=== PATIENT | male | born 1990 | race Caucasian/White ===

== ENCOUNTER 2017-03-20 09:26 | Emergency (ER) | payer MEDICAID ==
[~2017-03-20] VITALS: Ht 175.3 cm; Wt 62.4 kg
[~2017-03-20 09:26] MED LIST: ALBU8.5H8 IH; CLON-528 PO; IBUP-1986 PO; MECL-111 PO; OLAN2.5T3 PO; ONDA4TAB12 PO; ZIPR20CA2 PO
[2017-03-20 10:36] LABS: BASOPHILS % (AUTO) 0.5 % (0-1); EOSINOPHILS # (AUTO) 0.1 X10'3 (0-0.9); EOSINOPHILS % (AUTO) 1.6 % (0-6); HEMATOCRIT 48.4 % (42.0-52.0); HEMOGLOBIN 16.4 g/dl (14.0-17.9); MEAN CORPUSCULAR HEMOGLOBIN 31.6 PG (27.0-31.0); MEAN CORPUSCULAR HGB CONC 33.8 % (33.0-36.5); MEAN CORPUSCULAR VOLUME 93.5 FL (78-98); MEAN PLATELET VOLUME 7.8 FL (7.4-10.4); MONOCYTES # (AUTO) 0.4 X10'3 (0-0.9); MONOCYTES % (AUTO) 8.5 % (2-12); NEUTROPHILS # (AUTO) 3.4 X10'3 (1.8-7.7); NEUTROPHILS % (AUTO) 68.4 % (42-75); PLATELET COUNT 275 X10'3 (140-440); RED BLOOD COUNT 5.17 X10'6 (4.70-6.10); RED CELL DISTRIBUTION WIDTH 12.5 % (11.5-14.5)
[2017-03-20 10:47] LABS: INR 1.1 INR; PARTIAL THROMBOPLASTIN TIME 26 SECONDS (22-32); PROTHROMBIN TIME 11.1 SECONDS (9.0-12.0)
[2017-03-20 10:52] LABS: ALANINE AMINOTRANSFERASE 36 U/L (12-78); ALBUMIN/GLOBULIN RATIO 1.4 (1.1-1.5); ALKALINE PHOSPHATASE 56 IU/L (46-116); ANION GAP 9 (8-16); ASPARTATE AMINO TRANSFERASE 29 U/L (10-37); BILIRUBIN,TOTAL 0.8 MG/DL (0.1-1.0); BLOOD UREA NITROGEN 13 MG/DL (7-18); BUN/CREATININE RATIO 16.3 (5.4-32.0); CALCIUM 9.7 MG/DL (8.5-10.1); CHLORIDE 101 MMOL/L (99-107); ETHANOL < 0.010 GM/DL (0.0-0.010); GLUCOSE 107 MG/DL (70-104); POTASSIUM 4.3 MMOL/L (3.5-5.1); SODIUM 141 MMOL/L (135-145); TOTAL CARBON DIOXIDE 30.7 MMOL/L (24-32); TOTAL PROTEIN 8.7 G/DL (6.4-8.2); eGFR > 90 ML/MIN
[2017-03-20 12:12] LABS: CLARITY,URINE SLIGHTLY CLOUDY (Clear); COLOR,URINE DARK YELLOW (Yellow); GLUCOSE, URINE NEGATIVE (Neg); KETONES,URINE 40 mg/dl (Neg); LEUKOCYTE ESTERASE ,URINE MODERATE (Neg); NITRITES, URINE NEGATIVE (Neg); OCCULT BLOOD,URINE NEGATIVE (Neg); PH,URINE 6.5 (4.8-8.0); PROTEIN,URINE NEGATIVE (Neg); UA COLLECTION TYPE VOIDED
[2017-03-20 12:23] LABS: BACTERIA,URINE 1+ /HPF (Neg); MUCUS STRANDS MANY /LPF (Neg); RBC,URINE NONE SEEN /HPF (0-2); SQUAMOUS EPITHELIAL CELL,UR MANY /LPF (FEW)
[2017-03-20 12:24] LABS: URINE AMPHETAMINE SCREEN NEGATIVE (Neg); URINE BARBITUATE SCREEN NEGATIVE (Neg); URINE BENZODIAZEPINES SCREEN NEGATIVE (Neg); URINE CANNABINOID SCREEN POSITIVE (Neg); URINE COCAINE SCREEN NEGATIVE (Neg); URINE METHADONE SCREEN NEGATIVE (Neg); URINE OPIATE SCREEN NEGATIVE (Neg); URINE PHENCYCLIDINE SCREEN NEGATIVE (Neg)
[2017-03-20 13:14] VITALS: BP 128/67
== END 2017-03-20 13:33 | disposition home or self-care (01) ==
LOC: ER 09:27
DX: S09.90XA Unspecified injury of head, initial encounter (principal); R55 Syncope and collapse; F41.9 Anxiety disorder, unspecified; F32.9 Major depressive disorder, single episode, unspecified; F20.9 Schizophrenia, unspecified; F12.10 Cannabis abuse, uncomplicated; Z88.8 Allergy status to other drugs, medicaments and biological substances; W22.8XXA Striking against or struck by other objects, initial encounter; Y93.89 Activity, other specified; Y92.002 Bathroom of unspecified non-institutional (private) residence as the place of occurrence of the external cause; Y99.8 Other external cause status
CPT/HCPCS: 36415; 70450; 80053; 80305; 80320; 81001; 85025; 85610; 85730; 93005; 99285

== ENCOUNTER 2017-04-03 00:41 | Inpatient (IN) | payer MEDICAID ==
[~2017-04-03] VITALS: Ht 175.3 cm; Wt 66.9 kg
[2017-04-03] MEDS ORDERED: ketorolac trometh. 30mg/ml inj. IV ONE (02:00)
[2017-04-03 02:37] LABS: BASOPHILS % (AUTO) 0.1 % (0-1); EOSINOPHILS # (AUTO) 0.3 X10'3 (0-0.9); EOSINOPHILS % (AUTO) 2.3 % (0-6); HEMATOCRIT 37.4 % (42.0-52.0); HEMOGLOBIN 12.8 g/dl (14.0-17.9); LYMPHOCYTES # (AUTO) 1.3 X10'3 (1.1-4.8); LYMPHOCYTES % (AUTO) 11.8 % (21-51); MEAN CORPUSCULAR HEMOGLOBIN 32.2 PG (27.0-31.0); MEAN CORPUSCULAR HGB CONC 34.3 % (33.0-36.5); MEAN CORPUSCULAR VOLUME 93.9 FL (78-98); MEAN PLATELET VOLUME 7.7 FL (7.4-10.4); MONOCYTES # (AUTO) 0.7 X10'3 (0-0.9); MONOCYTES % (AUTO) 6.5 % (2-12); NEUTROPHILS # (AUTO) 8.9 X10'3 (1.8-7.7); NEUTROPHILS % (AUTO) 79.3 % (42-75); PLATELET COUNT 223 X10'3 (140-440); RED BLOOD COUNT 3.98 X10'6 (4.70-6.10); RED CELL DISTRIBUTION WIDTH 12.4 % (11.5-14.5); WHITE BLOOD COUNT 11.2 X10'3 (4.5-11.0)
[2017-04-03 02:59] LABS: ALANINE AMINOTRANSFERASE 36 U/L (12-78); ALBUMIN/GLOBULIN RATIO 1.4 (1.1-1.5); ALKALINE PHOSPHATASE 51 IU/L (46-116); ANION GAP 10 (8-16); ASPARTATE AMINO TRANSFERASE 31 U/L (10-37); BILIRUBIN,TOTAL 0.2 MG/DL (0.1-1.0); BLOOD UREA NITROGEN 19 MG/DL (7-18); CALCIUM 8.5 MG/DL (8.5-10.1); CHLORIDE 104 MMOL/L (99-107); GLUCOSE 88 MG/DL (70-104); POTASSIUM 3.7 MMOL/L (3.5-5.1); SODIUM 143 MMOL/L (135-145); TOTAL CARBON DIOXIDE 29.5 MMOL/L (24-32); TOTAL PROTEIN 6.9 G/DL (6.4-8.2); eGFR 89 ML/MIN
[2017-04-03 03:02] LABS: PARTIAL THROMBOPLASTIN TIME 24 SECONDS (22-32); PROTHROMBIN TIME 10.2 SECONDS (9.0-12.0)
[2017-04-03] MEDS ORDERED: haloperidol 5mg tablet PO PRN (03:25)
[2017-04-03] MEDS ORDERED: potassium Cl 20 mEq SR tablet PO PRN ×2 (03:25)
[2017-04-03] MEDS ORDERED: morphine 2 MG/ML inj. syringe IV PRN ×3 (03:25→19:22)
[2017-04-03] MEDS ORDERED: dextrose 50%-water 50ml dispensing syringe IV PRN (03:25)
[2017-04-03] MEDS ORDERED: ondansetron/PF 4mg/2ml inj IV PRN (03:25)
[2017-04-03] MEDS ORDERED: magnesium hydroxide 30ml (MOM) UD suspension PO PRN (03:25)
[2017-04-03] MEDS ORDERED: magnesium 2GM in 50ml NS 50 ML IV PRN (03:25)
[2017-04-03] MEDS ORDERED: LORazepam 2 mg/ml vial IV PRN (03:25)
[2017-04-03] MEDS ORDERED: thiamine 100mg/ml 2ml inj. IV ONE (03:25)
[2017-04-03] MEDS ORDERED: potassium Cl 40MEQ/NS 500ml 500 ML IV PRN ×2 (03:25)
[2017-04-03] MEDS ORDERED: mag hydrox/Alum hydrox/simeth 30ml oral suspension PO PRN (03:25)
[2017-04-03] MEDS ORDERED: magnesium 4gm in 100ml NS 100 ML IV PRN (03:25)
[2017-04-03] MEDS ORDERED: haloperidol lactate 5mg/ml inj IM PRN (03:25)
[2017-04-03] MEDS ORDERED: magnesium Cl slow-release 64mg tablet PO PRN (03:25)
[2017-04-03] MEDS ORDERED: acetaminophen 325mg tablet PO PRN (03:25)
[2017-04-03] MEDS: normal saline 1000ml 1,000 ML IV SCH ×3 (04:09→23:24)
[2017-04-03] MEDS ORDERED: morphine 5 MG/ML injection IV PRN ×2 (07:11)
[2017-04-03] MEDS: OLANZapine 2.5MG tablet PO SCH ×2 (07:18→19:25)
[2017-04-03] MEDS: clonazePAM 0.5mg tablet PO SCH ×2 (07:18→19:25)
[2017-04-03] MEDS: K and/or MAG REPLACEMENT MC SCH (08:00)
[2017-04-03 12:10] VITALS: BP 112/74
[2017-04-03 18:00] VITALS: BP 114/78
[2017-04-03] MEDS: morphine 2 MG/ML inj. syringe IV PRN (19:29)
[2017-04-03 22:00] VITALS: BP 116/72
[2017-04-04] VITALS (18 sets, daily range): BP systolic 103–143; BP diastolic 57–85
[2017-04-04] MEDS: morphine 2 MG/ML inj. syringe IV PRN (04:18)
[2017-04-04 05:38] LABS: BASOPHILS % (AUTO) 0.5 % (0-1); EOSINOPHILS # (AUTO) 0.2 X10'3 (0-0.9); EOSINOPHILS % (AUTO) 3.9 % (0-6); HEMATOCRIT 33.2 % (42.0-52.0); HEMOGLOBIN 11.5 g/dl (14.0-17.9); LYMPHOCYTES # (AUTO) 1.7 X10'3 (1.1-4.8); LYMPHOCYTES % (AUTO) 31.8 % (21-51); MEAN CORPUSCULAR HEMOGLOBIN 32.3 PG (27.0-31.0); MEAN CORPUSCULAR HGB CONC 34.5 % (33.0-36.5); MEAN CORPUSCULAR VOLUME 93.7 FL (78-98); MONOCYTES # (AUTO) 0.5 X10'3 (0-0.9); MONOCYTES % (AUTO) 8.7 % (2-12); NEUTROPHILS % (AUTO) 55.1 % (42-75); PLATELET COUNT 171 X10'3 (140-440); RED BLOOD COUNT 3.54 X10'6 (4.70-6.10); RED CELL DISTRIBUTION WIDTH 12.9 % (11.5-14.5); WHITE BLOOD COUNT 5.4 X10'3 (4.5-11.0)
[2017-04-04 06:08] LABS: ALANINE AMINOTRANSFERASE 30 U/L (12-78); ALBUMIN 3.2 G/DL (3.4-5.0); ALBUMIN/GLOBULIN RATIO 1.3 (1.1-1.5); ALKALINE PHOSPHATASE 42 IU/L (46-116); ANION GAP 7 (8-16); ASPARTATE AMINO TRANSFERASE 22 U/L (10-37); BILIRUBIN,TOTAL 0.5 MG/DL (0.1-1.0); BLOOD UREA NITROGEN 13 MG/DL (7-18); BUN/CREATININE RATIO 18.6 (5.4-32.0); CALCIUM 8.1 MG/DL (8.5-10.1); CHLORIDE 109 MMOL/L (99-107); GLUCOSE 91 MG/DL (70-104); MAGNESIUM 1.7 MG/DL (1.5-2.4); POTASSIUM 3.8 MMOL/L (3.5-5.1); SODIUM 143 MMOL/L (135-145); TOTAL CARBON DIOXIDE 26.6 MMOL/L (24-32); TOTAL PROTEIN 5.7 G/DL (6.4-8.2); eGFR > 90 ML/MIN
[2017-04-04] MEDS: K and/or MAG REPLACEMENT MC SCH (08:00)
[2017-04-04] MEDS: clonazePAM 0.5mg tablet PO SCH ×2 (08:20→20:28)
[2017-04-04] MEDS: OLANZapine 2.5MG tablet PO SCH ×2 (08:20→20:28)
[2017-04-04] MEDS ORDERED: sevoflurane 250ml liquid IH ONE (08:45)
[2017-04-04] MEDS ORDERED: naloxone 0.4 mg/ml inj ONE (08:45)
[2017-04-04] MEDS ORDERED: fentaNYL/PF 50MCG/1 ML 2ML syringe ONE ×2 (08:46→09:00)
[2017-04-04] MEDS ORDERED: midazolam 2 mg/2 ml injection ONE (08:46)
[2017-04-04] MEDS ORDERED: BUPIVAcaine/PF 2.5 mg/ml (0.25%) 30ml vial ONE (09:12)
[2017-04-04] MEDS ORDERED: ringers solution, lacted 1,000 ML IV SCH (09:28)
[2017-04-04] MEDS ORDERED: meperidine/PF 25mg/ml syringe IV PRN ×3 (09:30)
[2017-04-04] MEDS ORDERED: morphine 2 MG/ML inj. syringe IV PRN ×2 (09:30)
[2017-04-04] MEDS ORDERED: ondansetron/PF 4mg/2ml inj IV PRN (09:30)
[2017-04-04] MEDS ORDERED: proCHLORperazine 10 MG/2 ml inj IV PRN (09:30)
[2017-04-04] MEDS ORDERED: neostigmine methylsulfate 1 MG/ML 10ml vial ONE (09:35)
[2017-04-04] MEDS ORDERED: propofol inj 20 ML IV ONE (09:35)
[2017-04-04] MEDS ORDERED: rocuronium 10mg/ml inj IV ONE (09:35)
[2017-04-04] MEDS ORDERED: dexamethasone sod phosphate 4mg/ml inj. ONE (09:35)
[2017-04-04] MEDS ORDERED: ondansetron/PF 4mg/2ml inj ONE (09:35)
[2017-04-04] MEDS ORDERED: LIDOcaine 2% (20mg/ml) 5ml vial ONE (09:35)
[2017-04-04] MEDS ORDERED: glycopyrrolate 0.2mg/ml inj ONE (09:35)
[2017-04-04] MEDS ORDERED: ketorolac trometh. 30mg/ml inj. ONE (09:48)
[2017-04-04] MEDS ORDERED: HYDROcodone/acetaminophen 10/325mg tab PO PRN (11:00)
[2017-04-04] MEDS: normal saline 1000ml 1,000 ML IV SCH ×2 (17:13→19:24)
[2017-04-04] MEDS: HYDROcodone/acetaminophen 10/325mg tab PO PRN (20:30)
[2017-04-05] MEDS ORDERED: LORazepam 2 mg/ml vial IV PRN (03:25)
[2017-04-05] MEDS ORDERED: LORazepam 1 MG tablet PO PRN (03:25)
[2017-04-05] MEDS: HYDROcodone/acetaminophen 10/325mg tab PO PRN (05:17)
[2017-04-05] MEDS: normal saline 1000ml 1,000 ML IV SCH (05:24)
[2017-04-05 06:00] VITALS: BP 106/68
[2017-04-05] MEDS ORDERED: HYDR-3972 PO (07:40)
[2017-04-05] MEDS: K and/or MAG REPLACEMENT MC SCH (08:00)
[2017-04-05] MEDS ORDERED: clotrimazole topical cream 15gm tube TP SCH (08:00)
[2017-04-05 08:24] LABS: BASOPHILS % (AUTO) 0.4 % (0-1); EOSINOPHILS # (AUTO) 0.1 X10'3 (0-0.9); EOSINOPHILS % (AUTO) 1.4 % (0-6); HEMOGLOBIN 11.5 g/dl (14.0-17.9); LYMPHOCYTES # (AUTO) 1.4 X10'3 (1.1-4.8); LYMPHOCYTES % (AUTO) 16.8 % (21-51); MEAN CORPUSCULAR HEMOGLOBIN 31.9 PG (27.0-31.0); MEAN CORPUSCULAR VOLUME 93.9 FL (78-98); MEAN PLATELET VOLUME 7.8 FL (7.4-10.4); MONOCYTES # (AUTO) 0.7 X10'3 (0-0.9); MONOCYTES % (AUTO) 8.9 % (2-12); NEUTROPHILS # (AUTO) 5.9 X10'3 (1.8-7.7); NEUTROPHILS % (AUTO) 72.5 % (42-75); PLATELET COUNT 201 X10'3 (140-440); RED BLOOD COUNT 3.62 X10'6 (4.70-6.10); RED CELL DISTRIBUTION WIDTH 12.6 % (11.5-14.5); WHITE BLOOD COUNT 8.1 X10'3 (4.5-11.0)
[2017-04-05] MEDS: clonazePAM 0.5mg tablet PO SCH (08:28)
[2017-04-05] MEDS: OLANZapine 2.5MG tablet PO SCH (08:28)
[2017-04-05 08:40] LABS: ALANINE AMINOTRANSFERASE 31 U/L (12-78); ALBUMIN 3.3 G/DL (3.4-5.0); ALBUMIN/GLOBULIN RATIO 1.1 (1.1-1.5); ALKALINE PHOSPHATASE 44 IU/L (46-116); ANION GAP 7 (8-16); ASPARTATE AMINO TRANSFERASE 34 U/L (10-37); BILIRUBIN,TOTAL 0.2 MG/DL (0.1-1.0); BLOOD UREA NITROGEN 10 MG/DL (7-18); BUN/CREATININE RATIO 12.5 (5.4-32.0); CALCIUM 8.2 MG/DL (8.5-10.1); CHLORIDE 107 MMOL/L (99-107); GLUCOSE 104 MG/DL (70-104); MAGNESIUM 1.6 MG/DL (1.5-2.4); POTASSIUM 3.9 MMOL/L (3.5-5.1); SODIUM 142 MMOL/L (135-145); TOTAL CARBON DIOXIDE 28.5 MMOL/L (24-32); TOTAL PROTEIN 6.3 G/DL (6.4-8.2); eGFR > 90 ML/MIN
[2017-04-07] MEDS ORDERED: LORazepam 2 mg/ml vial IV PRN (03:25)
[2017-04-07] MEDS ORDERED: LORazepam 1 MG tablet PO PRN (03:25)
== END 2017-04-05 12:07 | disposition home or self-care (01) | DRG 315 ==
LOC: ER 00:42 → ED HOLD 03:24 → ORTHO 4S 11:54
PROVIDERS: ADMIT Internal Medicine; ATTEND Internal Medicine
PROC: 2W3DX1Z Immobilization of Left Lower Arm using Splint (ICD-10-PCS; principal; 2017-04-03)
PROC: 0PSJ04Z Reposition Left Radius with Internal Fixation Device, Open Approach (ICD-10-PCS; 2017-04-04)
PROC: 0PSL04Z Reposition Left Ulna with Internal Fixation Device, Open Approach (ICD-10-PCS; 2017-04-04)
DX: S52.352A Displaced comminuted fracture of shaft of radius, left arm, initial encounter for closed fracture (principal); G83.9 Paralytic syndrome, unspecified; F20.9 Schizophrenia, unspecified; S52.252A Displaced comminuted fracture of shaft of ulna, left arm, initial encounter for closed fracture; D64.9 Anemia, unspecified; E86.0 Dehydration; D72.829 Elevated white blood cell count, unspecified; F31.9 Bipolar disorder, unspecified; F12.90 Cannabis use, unspecified, uncomplicated; F41.9 Anxiety disorder, unspecified; F29 Unspecified psychosis not due to a substance or known physiological condition; G93.9 Disorder of brain, unspecified; V03.10XA Pedestrian on foot injured in collision with car, pick-up truck or van in traffic accident, initial encounter; Z59.0 Homelessness; Z79.899 Other long term (current) drug therapy; Z79.01 Long term (current) use of anticoagulants; Z79.82 Long term (current) use of aspirin; Z88.8 Allergy status to other drugs, medicaments and biological substances; Z91.030 Bee allergy status; Z56.0 Unemployment, unspecified; Y93.89 Activity, other specified; Y92.89 Other specified places as the place of occurrence of the external cause; Y99.8 Other external cause status
CPT/HCPCS: 36415; 70450; 71045; 73070; 73090; 73100; 80053; 82948; 83735; 85025; 85610; 85730; 86885; 86900; 86901; 87070; 96374; 99285; A4565; A6222; A6446; A6449; A7000; C1713; J1100; J1885; J2001; J2175; J2250; J2270; J2310; J2405; J2704; J2710; J3010; J3411; J3490; J7030; J7120

== ENCOUNTER 2017-11-26 20:16 | Emergency (ER) | payer MEDICAID ==
[~2017-11-26] VITALS: Ht 175.3 cm; Wt 65.0 kg
[~2017-11-26 20:16] MED LIST changes: +HYDR-3972 PO
[2017-11-26 20:35] VITALS: BP 131/84
[2017-11-26 21:52] LABS: CLARITY,URINE SLIGHTLY CLOUDY (Clear); COLOR,URINE YELLOW (Yellow); GLUCOSE, URINE NEGATIVE (Neg); KETONES,URINE NEGATIVE (Neg); LEUKOCYTE ESTERASE ,URINE LARGE (Neg); NITRITES, URINE NEGATIVE (Neg); OCCULT BLOOD,URINE TRACE-INTACT (Neg); PROTEIN,URINE NEGATIVE (Neg); UROBILINOGEN,URINE 0.2 E.U/dL (0.2-1.0)
[2017-11-26 21:58] LABS: UA COLLECTION TYPE CLN CATCH MIDSTREAM
[2017-11-26] MEDS ORDERED: azithromycin 250mg tablet PO ONE (22:00)
[2017-11-26] MEDS ORDERED: CefTRIAXone 250MG IM Kit w/LIDOcaine IM ONE (22:00)
[2017-11-26 22:06] LABS: TRICHOMONAS,URINE FEW /HPF (NEGATIVE)
[2017-11-26 22:07] LABS: BACTERIA,URINE FEW /HPF (Neg); RBC,URINE 0-2 /HPF (0-2); WBC,URINE 20-30 /HPF (0-4)
[2017-11-26 22:08] LABS: SQUAMOUS EPITHELIAL CELL,UR MODERATE /LPF (FEW); WBC CLUMPS,URINE MODERATE /HPF (NEGATIVE)
[2017-11-26] MEDS ORDERED: CIPR-230 PO (22:10)
== END 2017-11-26 22:25 | disposition home or self-care (01) ==
LOC: ER 20:16
DX: N39.0 Urinary tract infection, site not specified (principal); A64 Unspecified sexually transmitted disease; F12.90 Cannabis use, unspecified, uncomplicated; Z56.0 Unemployment, unspecified; Z98.890 Other specified postprocedural states; Z88.8 Allergy status to other drugs, medicaments and biological substances; Z79.2 Long term (current) use of antibiotics; Z79.899 Other long term (current) drug therapy
CPT/HCPCS: 36415; 81001; 87088; 87491; 87591; 96372; 99284; J0696; 87077; 87186

== ENCOUNTER 2018-02-26 14:35 | Emergency (ER) | payer MEDICAID ==
[~2018-02-26] VITALS: Ht 175.3 cm; Wt 74.5 kg
[2018-02-26 16:29] LABS: CLARITY,URINE SLIGHTLY CLOUDY (Clear); COLOR,URINE DARK YELLOW (Yellow); GLUCOSE, URINE NEGATIVE (Neg); KETONES,URINE TRACE mg/dl (Neg); LEUKOCYTE ESTERASE ,URINE SMALL (Neg); NITRITES, URINE NEGATIVE (Neg); OCCULT BLOOD,URINE NEGATIVE (Neg); PROTEIN,URINE 30 mg/dl (Neg); UA COLLECTION TYPE CLN CATCH MIDSTREAM
[2018-02-26 16:35] LABS: BACTERIA,URINE 1+ /HPF (Neg); RBC,URINE NONE SEEN /HPF (0-2); WBC,URINE 30-50 /HPF (0-4)
[2018-02-26 16:36] LABS: MUCUS STRANDS MANY /LPF (Neg); SQUAMOUS EPITHELIAL CELL,UR MANY /LPF (FEW)
[2018-02-26 17:25] VITALS: BP 117/68
[2018-02-26] MEDS ORDERED: clotrimazole topical cream 15gm tube TP STA (17:37)
[2018-02-26] MEDS ORDERED: LIDOcaine 2% 10ml TOPICAL JELLY (Urojet) MM ONE (17:40)
[2018-02-26] MEDS ORDERED: clotrimazole/betamethasone diproprion. cream 15gm TP ONE (17:50)
== END 2018-02-26 18:27 | disposition home or self-care (01) ==
LOC: ER 14:35
DX: N48.1 Balanitis (principal); F12.90 Cannabis use, unspecified, uncomplicated; Z88.8 Allergy status to other drugs, medicaments and biological substances; Z79.899 Other long term (current) drug therapy; Z56.0 Unemployment, unspecified
CPT/HCPCS: 81001; 99283

== ENCOUNTER 2020-06-27 22:25 | Emergency (ER) | payer MEDICAID ==
[~2020-06-27] VITALS: Ht 175.3 cm; Wt 78.0 kg
[~2020-06-27 22:25] MED LIST changes: -MECL-111 PO; +MECL-159 PO
[2020-06-27 22:29] VITALS: BP 119/83
[2020-06-27 23:27] LABS: CLARITY,URINE CLOUDY (Clear); COLOR,URINE YELLOW (Yellow); GLUCOSE, URINE NEGATIVE (Neg); KETONES,URINE NEGATIVE (Neg); LEUKOCYTE ESTERASE ,URINE LARGE (Neg); NITRITES, URINE NEGATIVE (Neg); OCCULT BLOOD,URINE LARGE (Neg); PROTEIN,URINE TRACE mg/dl (Neg); UROBILINOGEN,URINE 0.2 E.U/dL (0.2-1.0)
[2020-06-27 23:29] LABS: UA COLLECTION TYPE CLN CATCH MIDSTREAM
[2020-06-27 23:34] LABS: RBC,URINE 20-50 /HPF (0-2)
[2020-06-27 23:35] LABS: BACTERIA,URINE FEW /HPF (Neg); SQUAMOUS EPITHELIAL CELL,UR FEW /LPF (FEW); TRANSITIONAL EPI CELLS,URINE FEW /HPF
[2020-06-28] MEDS ORDERED: DOXYCYCLINE 100MG CAPSULE PO STA (01:12)
[2020-06-28] MEDS ORDERED: DOXY-1 PO (01:16)
== END 2020-06-28 01:51 | disposition home or self-care (01) ==
LOC: ER 22:26
DX: N39.0 Urinary tract infection, site not specified (principal); R31.9 Hematuria, unspecified; R30.0 Dysuria; M54.5 Low back pain; R11.0 Nausea; R10.84 Generalized abdominal pain; F41.9 Anxiety disorder, unspecified; F31.9 Bipolar disorder, unspecified; F20.9 Schizophrenia, unspecified; F12.90 Cannabis use, unspecified, uncomplicated; Z98.890 Other specified postprocedural states; Z72.89 Other problems related to lifestyle; Z56.0 Unemployment, unspecified; Z88.8 Allergy status to other drugs, medicaments and biological substances; Z79.2 Long term (current) use of antibiotics; Z79.899 Other long term (current) drug therapy
CPT/HCPCS: 81001; 87077; 87088; 87186; 99283